=== PATIENT | female | born 1970 | race Caucasian/White ===

== ENCOUNTER 2017-03-14 17:23 | Emergency (ER) | payer BC, OTHER ==
[~2017-03-14] VITALS: Ht 170.2 cm; Wt 111.1 kg
[~2017-03-14 17:23] MED LIST: ALPR1TAB2 PO; AMIT50TA PO; ASPI-482 PO; DIME50TA21 PO; FAMO40TA4 PO; GLIP5TAB10 PO; HYDR-971 PO; IBUP-1007 PO; LISI1TAB5 PO; METF-620 PO; ONDA4TAB7 PO; OXYC-323 PO; PANT40TA5 PO
[2017-03-14] MEDS ORDERED: ONDANSETRON PF 4 MG/2 ML VIAL. IV ONE (18:00)
[2017-03-14 18:21] LABS: BASO # 0.1 x10^3/uL (0.0-0.2); BASO % 1 % (0-3); EOS % 0 % (0-3); HEMATOCRIT 42.5 % (36.0-47.0); HEMOGLOBIN 14.6 g/dL (12.0-15.5); LYMPH # 4.4 x10^3/uL (1.0-4.8); LYMPH % 31 % (24-48); MEAN CORPUSCULAR HEMOGLOBIN 30 pg (25-35); MEAN CORPUSCULAR HGB CONC 34 g/dL (31-37); MEAN CORPUSCULAR VOLUME 87 fL (79-100); MONO % 5 % (0-9); NEUT % 63 % (31-73); PLATELET COUNT 401 x10^3/uL (140-400); RED BLOOD COUNT 4.87 x10^6/uL (3.50-5.40); RED CELL DISTRIBUTION WIDTH 14.2 % (11.5-14.5); WHITE BLOOD COUNT 14.3 x10^3/uL (4.0-11.0)
[2017-03-14 18:57] LABS: CALCIUM 9.8 mg/dL (8.5-10.1); CREATININE 0.8 mg/dL (0.6-1.0); GFR 76.9; POTASSIUM 3.6 mmol/L (3.5-5.1)
[2017-03-14 19:03] LABS: ALBUMIN 3.7 g/dL (3.4-5.0); ALBUMIN/GLOBULIN RATIO 0.9 (1.0-1.7); TOTAL BILIRUBIN 0.2 mg/dL (0.2-1.0); TOTAL PROTEIN 7.7 g/dL (6.4-8.2)
--- NOTE | 2017-03-14 19:21 | PHYS DOC ---
Past Medical History Past Medical History: Anxiety, Depression, Diabetes-Type II, Hypertension Past Surgical History: Hysterectomy Additional Past Surgical Histo: R ELBOW, R SHOULDER BONE SHAVE, PLACE IN NECK C3-4 Alcohol Use: None Drug Use: None Adult General Chief Complaint Chief Complaint: ANXIETY/PANIC ATTACK HPI HPI Patient is a 46 year old female presents with complaints of anxiety attack and panic attacks similar to previous episodes. Patient denies any recent illnesses , new medications. Patient admits to being the more stressed lately due to various social events. Denies any history of substance abuse Review of Systems Review of Systems Constitutional: Denies fever or chills [] Eyes: Denies change in visual acuity, redness, or eye pain [] HENT: Denies nasal congestion or sore throat [] Respiratory: Denies cough or shortness of breath [] Cardiovascular: No chest pain GI: Denies abdominal pain, nausea, vomiting, : Denies dysuria or hematuria [] Musculoskeletal: Denies back pain or joint pain [] Integument: Denies rash or skin lesions [] Neurologic: Denies headache, focal weakness or sensory changes [] Psych: Anxiety Current Medications Current Medications Current Medications Medications (Trade) Dose Ordered Sig/Lonnie Start Time Stop Time Status Last Admin Dose Admin Lorazepam (Ativan) 1 mg 1X ONCE 03/14/17 18:00 03/14/17 18:01 DC 03/14/17 18:12 1 MG Ondansetron HCl (Zofran) 4 mg 1X ONCE 03/14/17 18:00 03/14/17 18:01 DC 03/14/17 18:12 4 MG Allergies Allergies Allergies Coded Allergies Type Severity Reaction Last Updated Verified Latex, Natural Rubber Allergy Intermediate BLISTER 11/03/15 Yes morphine Adverse Reaction Intermediate NAUSEA/VOMITING 11/03/15 No sulfamethoxazole Adverse Reaction Intermediate NAUSEA/VOMITING 11/03/15 Yes trimethoprim Adverse Reaction Intermediate NAUSEA/VOMITING 11/03/15 Yes Physical Exam Physical Exam Constitutional: Well developed, well nourished, mild distress, non-toxic appearance. [] HENT: Normocephalic, atraumatic, oropharynx moist dry, no oral exudates, nose normal. [] Eyes: EOMI, conjunctiva normal, no discharge. [] Neck: Normal range of motion, no tenderness, supple, no stridor. [] Cardiovascular:Heart rate regular rhythm, no murmur, equal pulses, normal perfusion Lungs & Thorax: Bilateral breath sounds clear to auscultation, no tachypnea Abdomen: Bowel sounds normal, soft, no tenderness, no masses, no pulsatile masses. [] Skin: Warm, dry, no erythema, no rash. [] Back: Normal rom Extremities: No tenderness, no cyanosis,, ROM intact, no edema. No signs DVT Neurologic: Alert and oriented X 3, normal motor function, normal ambulation without assistance and with normal gait in the ED, no focal deficits noted. [] Psychologic: Affect normal, judgement normal, mood anxious. [] Current Patient Data Vital Signs Vital Signs Date Time Temp Pulse Resp B/P (MAP) Pulse Ox O2 Delivery O2 Flow Rate FiO2 03/14/17 18:43 86 13 116/63 (80) Room Air 03/14/17 18:13 97 03/14/17 17:40 97.9 97.9 Lab Values Laboratory Tests Test 03/14/17 17:40 03/14/17 18:10 03/14/17 18:42 Glucose (Fingerstick) 144 mg/dL (70-99) H White Blood Count 14.3 x10^3/uL (4.0-11.0) H Red Blood Count 4.87 x10^6/uL (3.50-5.40) Hemoglobin 14.6 g/dL (12.0-15.5) Hematocrit 42.5 % (36.0-47.0) Mean Corpuscular Volume 87 fL (79-100) Mean Corpuscular Hemoglobin 30 pg (25-35) Mean Corpuscular Hemoglobin Concent 34 g/dL (31-37) Red Cell Distribution Width 14.2 % (11.5-14.5) Platelet Count 401 x10^3/uL (140-400) H Neutrophils (%) (Auto) 63 % (31-73) Lymphocytes (%) (Auto) 31 % (24-48) Monocytes (%) (Auto) 5 % (0-9) Eosinophils (%) (Auto) 0 % (0-3) Basophils (%) (Auto) 1 % (0-3) Neutrophils # (Auto) 9.0 x10^3uL (1.8-7.7) H Lymphocytes # (Auto) 4.4 x10^3/uL (1.0-4.8) Monocytes # (Auto) 0.7 x10^3/uL (0.0-1.1) Eosinophils # (Auto) 0.0 x10^3/uL (0.0-0.7) Basophils # (Auto) 0.1 x10^3/uL (0.0-0.2) Sodium Level 141 mmol/L (136-145) Potassium Level 3.6 mmol/L (3.5-5.1) Chloride Level 105 mmol/L (98-107) Carbon Dioxide Level 24 mmol/L (21-32) Anion Gap 12 (6-14) Blood Urea Nitrogen 16 mg/dL (7-20) Creatinine 0.8 mg/dL (0.6-1.0) Estimated GFR (Cockcroft-Gault) 76.9 BUN/Creatinine Ratio 20 (6-20) Glucose Level 130 mg/dL (70-99) H Calcium Level 9.8 mg/dL (8.5-10.1) Total Bilirubin 0.2 mg/dL (0.2-1.0) Aspartate Amino Transferase (AST) 10 U/L (15-37) L Alanine Aminotransferase (ALT) 18 U/L (14-59) Alkaline Phosphatase 102 U/L (46-116) Troponin I Quantitative < 0.017 ng/mL (0.000-0.055) Total Protein 7.7 g/dL (6.4-8.2) Albumin 3.7 g/dL (3.4-5.0) Albumin/Globulin Ratio 0.9 (1.0-1.7) L Laboratory Tests 03/14/17 18:10 Laboratory Tests 03/14/17 18:42 EKG EKG 1934 80, SR, no stemi[] Radiology/Procedures Radiology/Procedures [] Impressions: 1927 pt feels much improved, HR 83, normotensive, 96% RA no tachypnea Course & Med Decision Making Course & Med Decision Making Pertinent Labs and Imaging studies reviewed. (See chart for details) [] Dragon Disclaimer Dragon Disclaimer This electronic medical record was generated, in whole or in part, using a voice recognition dictation system. Departure Departure Impression: Primary Impression: Anxiety Disposition: HOME, SELF-CARE Condition: IMPROVED Referrals: RAHAT PEPE MD (PCP) please follow up with your doctor in 2-4 days and discuss this ED visit and possible adjustments to your medication regimen. If your symptoms return or new concerning symptoms develop return to the ED immediately Patient Instructions: Anxiety and Panic Attacks Pauline RAJAN MD Mar 14, 2017 19:21
[2017-03-14 19:44] VITALS: BP 106/58
--- NOTE | 2017-03-15 06:28 | EKG ---
[facility] [address] [place] [address] Test Date: 2017-03-14 Test Time: 19:29:52 Pat Name: THAO BLANCO Department: Room: Gender: F Transportation Dispatcher: : [id number] Requested By: Pauline RAJAN Order Number: [id number] Reading MD: Armond Diop Measurements Intervals [place] Rate: 80 P: 29 TN: 162 QRS: 15 QRSD: 78 T: 26 QT: 356 QTc: 414 Interpretive Statements SINUS RHYTHM Electronically Signed On 03-19-2017 8:47:11 CDT by Armond Diop
== END 2017-03-14 19:54 | disposition home or self-care (01) ==
LOC: ER 17:23
DX: F41.9 Anxiety disorder, unspecified (principal); E11.9 Type 2 diabetes mellitus without complications; F32.9 Major depressive disorder, single episode, unspecified; I10 Essential (primary) hypertension; Z88.5 Allergy status to narcotic agent; Z88.1 Allergy status to other antibiotic agents; Z91.040 Latex allergy status
CPT/HCPCS: 36415; 80053; 82962; 84484; 85025; 93005; 96374; 96375; 99285; J2060; J2405